=== PATIENT | female | born 1980 | race Caucasian/White ===

== ENCOUNTER 2017-03-06 23:25 | Emergency (ER) | payer BC ==
[~2017-03-06] VITALS: Ht 160 cm; Wt 144.2 kg
--- NOTE | ~2017-03-06 | EKG ---
[place] [address] 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 : 1980 Requested By: Donnie Breen Order Number: [id number] MD: Mikie Selby Measurements Intervals [place] Rate: 80 P: 23 DC: 132 QRS: -16 QRSD: 104 T: -22 QT: 370 QTc: 427 Interpretive Statements Sinus rhythm Low voltage, precordial leads Probable left ventricular hypertrophy Borderline T abnormalities, inferior leads No previous ECG available for comparison Electronically Signed On 03-07-2017 9:16:02 LEAD ACCOUNTANT by Mikie Selby [email or web address] <ELECTRONICALLY SIGNED> By: Mikie Selby MD 03/07/17 0916 46 46 Mikie Selby MD /EVAN
[2017-03-07 00:19] LABS: MCV 89.1 fL (80.0-100.0); RDW 13.4 % (10.5-14.5)
[2017-03-07 00:21] LABS: HEMATOCRIT 42.7 % (37.0-47.0); HEMOGLOBIN 14.3 gm/dL (12.0-15.0); MCH 29.8 pg (26.0-34.0); MCHC 33.5 g/dL (28.0-37.0); RBC 4.79 mil/uL (4.20-5.00); WBC 13.5 thou/uL (4.0-11.0)
[2017-03-07 00:41] LABS: ANION GAP 13 mmol/L (7-16); BUN 19 mg/dL (7-18); CALCIUM 8.9 mg/dL (8.5-10.1); CHLORIDE 106 mmol/L (98-107); CO2 24 mmol/L (21-32); GLUCOSE 119 mg/dL (74-106); POTASSIUM 3.7 mmol/L (3.5-5.1); SODIUM 143 mmol/L (136-145)
[2017-03-07 00:50] LABS: ALBUMIN 3.7 g/dL (3.4-5.0); SGOT 23 U/L (15-37); SGPT 33 U/L (30-65); TOTAL BILIRUBIN 0.4 mg/dL (<0.1-1.0); TOTAL PROTEIN 6.8 g/dL (6.4-8.2); TROPONIN-I < 0.04 ng/mL (<0.06)
[2017-03-07 01:19] LABS: ABSOLUTE NEUTROPHILS 11.7 thou/uL (1.4-8.2)
[2017-03-07 01:20] LABS: PLATELET COUNT ND thou/uL (150-400)
[2017-03-07 01:42] LABS: URINE BILIRUBIN NEGATIVE (Negative); URINE BLOOD TRACE (Negative); URINE CLARITY CLEAR; URINE COLOR YELLOW; URINE GLUCOSE-RANDOM* NEGATIVE (Negative); URINE KETONES NEGATIVE (Negative); URINE LEUKOCYTES NEGATIVE (Negative); URINE NITRITE NEGATIVE (Negative); URINE PROTEIN (DIPSTICK) NEGATIVE (Negative); URINE SPECIFIC GRAVITY >= 1.030 (1.005-1.035); URINE UROBILINOGEN 0.2 E.U./dl (0.2-1.0)
== END 2017-03-07 01:56 | disposition home or self-care (01) ==
LOC: ER 23:25
PROVIDERS: Emergency Medicine
DX: R55 Syncope and collapse (principal); M17.0 Bilateral primary osteoarthritis of knee; E66.9 Obesity, unspecified; G43.909 Migraine, unspecified, not intractable, without status migrainosus; G47.30 Sleep apnea, unspecified; Z88.1 Allergy status to other antibiotic agents; Z88.5 Allergy status to narcotic agent; Z88.6 Allergy status to analgesic agent

== ENCOUNTER 2018-01-23 22:53 | Emergency (ER) | payer BC ==
[~2018-01-23] VITALS: Ht 160 cm; Wt 150.6 kg
[2018-01-23] MEDS ORDERED: VERAPAMIL E.R240 M1 PO (23:19)
[2018-01-23] MEDS ORDERED: TOPAMAX50 MG PO (23:19)
[2018-01-23] MEDS ORDERED: [UNRECOGNIZED DRUG - OTHER] PO (23:20)
[2018-01-23] MEDS ORDERED: IBUPROFEN 800800 M1 PO (23:21)
[2018-01-23] MEDS ORDERED: PROTONIX40 M1 PO (23:21)
[2018-01-24 01:16] VITALS: BP 133/85
== END 2018-01-24 01:19 | disposition home or self-care (01) ==
LOC: ER 22:53
DX: G43.909 Migraine, unspecified, not intractable, without status migrainosus (principal); M19.90 Unspecified osteoarthritis, unspecified site; G47.30 Sleep apnea, unspecified; Z88.5 Allergy status to narcotic agent; Z88.8 Allergy status to other drugs, medicaments and biological substances

== ENCOUNTER 2018-03-15 13:36 | Emergency (ER) | payer BC ==
[~2018-03-15] VITALS: Ht 160 cm; Wt 154.7 kg
[~2018-03-15 13:36] MED LIST: IBUPROFEN 800800 M1 PO; PROTONIX40 M1 PO; TOPAMAX50 MG PO; VERAPAMIL E.R240 M1 PO; [UNRECOGNIZED DRUG - OTHER] PO
[2018-03-15] MEDS ORDERED: VOLTAREN GEL 1100 G2 TOP (15:27)
[2018-03-15 16:04] VITALS: BP 128/73
[2018-03-15] MEDS ORDERED: BUTALB-APAP-CA1 EACH PO (16:04)
== END 2018-03-15 16:07 | disposition home or self-care (01) ==
LOC: ER 13:36
DX: G43.909 Migraine, unspecified, not intractable, without status migrainosus (principal); M19.90 Unspecified osteoarthritis, unspecified site; G47.30 Sleep apnea, unspecified; Z88.5 Allergy status to narcotic agent; Z88.8 Allergy status to other drugs, medicaments and biological substances

== ENCOUNTER 2018-05-21 13:03 | Emergency (ER) | payer BC ==
[~2018-05-21] VITALS: Ht 160 cm; Wt 165.6 kg
[~2018-05-21 13:03] MED LIST changes: +BUTALB-APAP-CA1 EACH PO; +VOLTAREN GEL 1100 G2 TOP
[2018-05-21] MEDS ORDERED: TIZANIDINE4 MG/1 TA1 PO (13:29)
[2018-05-21 15:01] VITALS: BP 159/88
== END 2018-05-21 15:02 | disposition home or self-care (01) ==
LOC: ER 13:03
DX: G43.909 Migraine, unspecified, not intractable, without status migrainosus (principal); M19.90 Unspecified osteoarthritis, unspecified site; G47.30 Sleep apnea, unspecified; Z96.651 Presence of right artificial knee joint; Z88.5 Allergy status to narcotic agent; Z88.8 Allergy status to other drugs, medicaments and biological substances

== ENCOUNTER 2018-06-05 04:28 | Emergency (ER) | payer BC ==
[~2018-06-05] VITALS: Ht 160 cm; Wt 161.0 kg
[~2018-06-05 04:28] MED LIST changes: +TIZANIDINE4 MG/1 TA1 PO
[2018-06-05 05:29] LABS: HEMATOCRIT 33.8 % (37.0-47.0); HEMOGLOBIN 11.6 gm/dL (12.0-15.0); MCHC 34.2 g/dL (28.0-37.0); MCV 90.5 fL (80.0-100.0); RBC 3.73 mil/uL (4.20-5.00); RDW 12.8 % (10.5-14.5); WBC 7.3 thou/uL (4.0-11.0)
[2018-06-05 05:48] LABS: CALCIUM 8.4 mg/dL (8.5-10.1); CREATININE 0.6 mg/dL (0.6-1.0); POTASSIUM 3.9 mmol/L (3.5-5.1)
[2018-06-05 06:40] VITALS: BP 125/66
--- NOTE | 2018-06-06 13:27 | EKG ---
[place] [address] [place] [address] ELECTROCARDIOGRAM REPORT Name: GAMA QUEEN [facility] [id number] ������������������ Admission: 06/05/18 ������������������ Attend Phys: Discharge: 06/05/18 ������������������ Date of : 80 Report #: [id number] ����������������������������������������������������������������� [id number] THIS REPORT FOR: //name// 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 : 1980 Requested By: Rola Burton Order Number: [id number] MD: Jermaine Solano Measurements Intervals [place] Rate: 54 P: -8 [place]: 110 QRS: -8 QRSD: 132 T: 15 QT: 453 QTc: 430 Interpretive Statements Sinus bradycardia Poor R wave progression Nonspecific T wave abnormality Compared to ECG 03/06/2017 23:47:20 no significant change was found Electronically Signed On 06-06-2018 13:27:31 CDT by Jermaine Solano [email or web address] ��������������������������������������������� <ELECTRONICALLY SIGNED> ���������������������������������������� By: Jermaine Solano MD, [facility] ��������������������������������������������� 06/06/18 1327 D: 04/443 044 Jermaine Solano MD, FACC /EPI
== END 2018-06-05 06:45 | disposition home or self-care (01) ==
LOC: ER 04:28
PROVIDERS: Emergency Medicine
DX: R06.00 Dyspnea, unspecified (principal); R06.02 Shortness of breath; M19.90 Unspecified osteoarthritis, unspecified site; G47.30 Sleep apnea, unspecified; G43.909 Migraine, unspecified, not intractable, without status migrainosus; Z96.651 Presence of right artificial knee joint; Z88.5 Allergy status to narcotic agent; Z88.6 Allergy status to analgesic agent; Z88.8 Allergy status to other drugs, medicaments and biological substances